=== PATIENT | female | born 1975 | race Caucasian/White ===

== ENCOUNTER 2017-12-09 11:28 | Emergency (ER) | payer MEDICAID ==
[2017-12-09] MEDS: MECLIZINE 12.5 MG TAB PO (12:43)
== END 2017-12-09 14:09 | disposition home or self-care (01) ==
LOC: E/R 11:28
DX: R42 Dizziness and giddiness (principal); R40.2142 Coma scale, eyes open, spontaneous, at arrival to emergency department; R40.2252 Coma scale, best verbal response, oriented, at arrival to emergency department; R40.2362 Coma scale, best motor response, obeys commands, at arrival to emergency department
CPT/HCPCS: 81025; 93005; 99283